=== PATIENT | male | born 1960 | race Caucasian/White ===

== ENCOUNTER 2024-11-11 23:13 | Emergency (ER) | payer SELFPAY ==
--- NOTE | 2024-11-11 23:40 | ER ---
Nurse's Notes [facility] Name: Remington Goetz Age: 63 yrs Sex: Male : 1960 Arrival Date: 11/11/2024 Time: 23:13 Bed 10 Private MD: Diagnosis: Pain in left hand Presentation: 11/11 23:23 Chief complaint: Patient states: LT HAND PAIN X3 WEEKS. PT REPORTS COMING TO THIS ER, dd2 GETTING SHOT AND STEROID, FOLLOWED UP WITH PCP AND WAS GIVEN MORE STEROIDS BUT CONTINUES TO HAVE WORSE PAIN. Coronavirus screen: At this time, the client does not indicate any symptoms associated with coronavirus-19. Ebola Screen: No symptoms or risks identified at this time. Initial Sepsis Screen: Does the patient meet any 2 criteria? No. Patient's initial sepsis screen is negative. Does the patient have a suspected source of infection? No. Patient's initial sepsis screen is negative. Risk Assessment: Do you want to hurt yourself or someone else? Patient reports no desire to harm self or others. Onset of symptoms is unknown. 23:23 Method Of Arrival: Ambulatory dd2 23:23 Acuity: JOE 4 dd2 Triage Assessment: 23:25 General: Appears in no apparent distress. uncomfortable, Behavior is calm, cooperative, dd2 appropriate for age. Pain: Complains of pain in left hand. Musculoskeletal: Circulation, motion, and sensation intact. Range of motion: intact in all extremities, Tenderness present in left hand Reports pain in left hand. Historical: - Allergies: 23:25 Sulfa (Sulfonamide Antibiotics); dd2 - PMHx: 23:25 None; dd2 - PSHx: 23:25 Partial shoulder-L; dd2 - Immunization history:: Adult Immunizations up to date. - Infectious Disease History:: Denies. - Social history:: Smoking status: Patient denies any tobacco usage or history of. Screenin:50 [facility] ED Fall Risk Assessment (Adult) History of falling in the last 3 months, dd2 including since admission No falls in past 3 months (0 pts) Confusion or Disorientation No (0 pts) Intoxicated or Sedated No (0 pts) Impaired Gait No (0 pts) Mobility Assist Device Used No (0 pt) Altered Elimination No (0 pt) Score/Fall Risk Level 0 - 2 = Low Risk Oriented to surroundings, Maintained a safe environment, Educated pt \T\ family on fall prevention, incl call for assistance when getting out of bed, Hourly rounding (assess needs \T\ fall precautionary measures) done. Abuse screen: Denies threats or abuse. Denies injuries from another. Nutritional screening: No deficits noted. Tuberculosis screening: No symptoms or risk factors identified. Assessment: 23:50 Reassessment: SEE TRIAGE ASSESSMENT. dd2 Vital Signs: 23:23 BP 158 / 92; Pulse 82; Resp 18; Temp 98.1; Pulse Ox 97% on R/A; Pain 10/10; dd2 23:23 Pain Scale: Adult dd2 ED Course: 23:20 Patient arrived in ED. im 23:20 Kandace Balderas FNP-C is [facility]. kb 23:20 Julien Brown MD is Attending Physician. kb 23:25 Triage completed. dd2 23:25 Arm band placed on right wrist. dd2 23:50 Patient has correct armband on for positive identification. Provided Education on: D/C dd2 EDUCATION. 23:50 No provider procedures requiring assistance completed. Patient did not have IV access dd2 during this emergency room visit. Administered Medications: 23:50 Drug: Paola PO 10 mg-325 mg 1 tabs PO once Route: PO; dd2 23:50 Drug: Ketorolac IM 30 mg IM once Route: IM; Site: left ventrogluteal; dd2 23:50 Drug: Dexamethasone IM 10 mg IM once Route: IM; Site: left ventrogluteal; dd2 Medication: 23:50 VIS not applicable for this client. dd2 Outcome: 23:40 Discharge ordered by . kb 23:50 Discharged to home ambulatory, dd2 23:50 Condition: stable 23:50 Discharge instructions given to patient, Instructed on discharge instructions, follow up and referral plans. medication usage, Demonstrated understanding of instructions, follow-up care, medications, Prescriptions given X 2, 23:52 Patient left the ED. dd2 Signatures: Kandace Balderas FNP-C FNP-Malena Toro im RIMMA CAVANAUGH RN RN dd2
--- NOTE | 2024-11-11 23:40 | EDPHYS ---
Physician Documentation [facility] Name: Remington Goetz Age: 63 yrs Sex: Male : 1960 Arrival Date: 11/11/2024 Time: 23:13 Bed 10 Private MD: ED Physician Julien Brown HPI: 11/11 23:36 This 63 yrs old Male presents to ER via Ambulatory with complaints of Hand Pain. kb 23:36 Pt is a 63 year old male who presents for pain to heel of hand that started 3 weeks kb ago. Pt was seen here around onset of pain, had negative US and xray. Was seen by PCP and given a steroid pack which made the pain tolerable until he completed the pack and the pain returned. Denies fever. . Historical: - Allergies: 23:25 Sulfa (Sulfonamide Antibiotics); dd2 - PMHx: 23:25 None; dd2 - PSHx: 23:25 Partial shoulder-L; dd2 - Immunization history:: Adult Immunizations up to date. - Infectious Disease History:: Denies. - Social history:: Smoking status: Patient denies any tobacco usage or history of. ROS: 23:35 Constitutional: As per HPI kb Exam: 23:35 Constitutional: This is a well developed, well nourished patient who is awake, alert, kb and in no acute distress. Head/Face: Normocephalic, atraumatic. ENT: Moist Mucous membranes Respiratory: Respirations even and unlabored. No increased work of breathing. Talking in full sentences Skin: Warm, dry with normal turgor. Normal color. Neuro: Awake and alert, GCS 15, oriented to person, place, time, and situation. 23:35 Musculoskeletal/extremity: Extremities: grossly normal except: noted in the left wrist and left hand: decreased ROM, pain, swelling, tenderness, ROM: limited active range of motion due to pain, Circulation is intact in all extremities. Sensation intact. Vital Signs: 23:23 BP 158 / 92; Pulse 82; Resp 18; Temp 98.1; Pulse Ox 97% on R/A; Pain 10/10; dd2 23:23 Pain Scale: Adult dd2 MDM: 23:20 Medical Screening Exam initiated kb 23:36 Differential diagnosis: tendonitis, arthritis, carpal tunnel. Data reviewed: vital kb signs, nurses notes. Test considered but Not performed: X-ray: xray considered but pt has had no injury and had a recent negative xray. Counseling: I had a detailed discussion with the patient and/or guardian regarding the historical points, exam findings, and any diagnostic results supporting the discharge/admit diagnosis, the need for outpatient follow up, a orthopedic surgeon, to return to the emergency department if symptoms worsen or persist or if there are any questions or concerns that arise at home. ED course: Pt will call PCP tomorrow for follow up and to get a referral to ortho. Administered Medications: 23:50 Drug: [place] PO 10 mg-325 mg 1 tabs PO once Route: PO; dd2 23:50 Drug: Ketorolac IM 30 mg IM once Route: IM; Site: left ventrogluteal; dd2 23:50 Drug: Dexamethasone IM 10 mg IM once Route: IM; Site: left ventrogluteal; dd2 Disposition: 11/12 18:52 Co-signature as Attending Physician, Julien Brown MD I agree with the assessment sp4 and plan of care. I reviewed the patient's care provided by the Advanced Practice Provider and agree with the diagnosis and treatment plan. Disposition Summary: 11/11/24 23:40 Discharge Ordered Notes: Location: Home kb Condition: Stable kb Diagnosis - Pain in left hand kb Followup: kb - With: Emergency Department - When: As needed - Reason: Worsening of condition Followup: kb - With: Private Physician - When: 2 - 3 days - Reason: Recheck today's complaints, Continuance of care, Re-evaluation by your physician Discharge Instructions: - Discharge Summary Sheet kb - Musculoskeletal Pain kb Forms: - Medication Reconciliation Form kb - Antibiotic Education kb - Prescription Opioid Use kb - Patient Portal Instructions kb - Leadership Thank You Letter kb Prescriptions: - Cyclobenzaprine 10 mg Oral tablet - take 1 tablet ORAL route every 8 hours As needed; 21 tablet; Refills: 0, kb Product Selection Permitted - Diclofenac Sodium 75 mg Oral tablet, delayed release (enteric coated) - take 1 tablet ORAL route 2 times per day As needed; 30 tablet; Refills: 0, kb Product Selection Permitted Signatures: Kandace Balderas FNP-C FNP-Ckb Potepalov, Sergey, MD MD sp4 RIMMA CAVANAUGH RN RN dd2
[2024-11-11] MEDS ORDERED: KETOROLAC 30 MG/ML INJ ONE (23:44)
[2024-11-11] MEDS ORDERED: HYDROCODONE/APAP 10/325 TAB ONE (23:44)
[2024-11-12 04:14] VITALS: BP 158/92; TEMP 98.1; O2SAT 97
== END 2024-11-11 23:52 | disposition home or self-care (01) ==
LOC: ER 23:13
DX: M79.642 Pain in left hand (principal)
CPT/HCPCS: J1100

== ENCOUNTER 2024-11-13 15:21 | Emergency (ER) | payer SELFPAY ==
--- NOTE | 2024-11-13 17:16 | RAD REPORT ---
EXAM: Hand Left 3 View HISTORY: PAIN COMPARISON: None FINDINGS: Bones: No acute fracture identified. Alignment:No significant malalignment. Degenerative changes:None significant. Other: n/a IMPRESSION: No acute osseous abnormality involving the imaged hand.
[2024-11-13] MEDS ORDERED: GABAPENTIN 300 MG CAP ONE (18:01)
[2024-11-13] MEDS ORDERED: KETOROLAC 30 MG/ML INJ ONE (18:01)
[2024-11-13] MEDS ORDERED: HYDROCODONE/APAP 10/325 TAB ONE (18:02)
--- NOTE | 2024-11-13 18:39 | EDPHYS ---
Physician Documentation [facility] Name: Remington Goetz Age: 63 yrs Sex: Male : 1960 Arrival Date: 11/13/2024 Time: 15:21 Bed 17 Private MD: ED Physician Adrien Etienne HPI: 11/13 16:20 This 63 yrs old Male presents to ER via Ambulatory with complaints of Hand Pain. cp 16:20 The patient or guardian reports pain, tenderness. The complaints affect the dorsal side cp of left thumb. Context: resulted from an unknown cause. Onset: The symptoms/episode began/occurred 4 day(s) ago. Modifying factors: the symptoms are aggravated by movement. 16:20 Associated signs and symptoms: Pertinent negatives: numbness distally, injury. cp 16:20 Severity of symptoms: in the emergency department the symptoms are unchanged, despite cp home interventions. Historical: - Allergies: 16:10 Sulfa (Sulfonamide Antibiotics); me1 - Home Meds: 16:10 naloxone (bulk) [Active]; buprenorphine-naloxone sublingual [Active]; me1 - PMHx: 16:10 neuropathy (Unknown); me1 - PSHx: 16:10 Partial shoulder-L; me1 - Immunization history:: Adult Immunizations up to date. - Infectious Disease History:: Denies. - Social history:: Smoking status: Reported history of juuling and/or vaping. ROS: 16:25 Constitutional: Negative for body aches, chills, fever, poor PO intake, cp 16:25 Cardiovascular: Negative for chest pain, palpitations, cp 16:25 Respiratory: Negative for cough, shortness of breath, wheezing, 16:25 Abdomen/GI: Negative for abdominal pain, vomiting, diarrhea, constipation, 16:25 Back: Negative for pain at rest, pain with movement, 16:25 MS/extremity: Positive for pain, of the left hand, Negative for injury or acute deformity, decreased range of motion, paresthesias, swelling, 16:25 All other systems are negative, Exam: 16:30 Constitutional: The patient appears in no acute distress, alert, awake, cp non-diaphoretic, non-toxic, well developed, well nourished, obese, uncomfortable, 16:30 Head/Face: Normocephalic, atraumatic. cp 16:30 Chest/axilla: Inspection: normal, 16:30 Cardiovascular: Rate: normal, Rhythm: regular, Pulses: Pulses are 2+ in left radial artery. 16:30 Respiratory: the patient does not display signs of respiratory distress, Respirations: normal, no use of accessory muscles, no retractions, labored breathing, is not present, Breath sounds: are clear throughout, no decreased breath sounds, 16:30 Abdomen/GI: Inspection: abdomen appears normal, 16:30 Musculoskeletal/extremity: Extremities: noted in the left hand: Gross exam shows no significant swelling, no erythema noted, patient has full active range of motion but reports pain and tenderness along the dorsal side of the proximal phalanx and first metatarsal with extension to the snuffbox area of the wrist, pain with passive range of motion of the left thumb but no deformities or range of motion restriction noted. Left thumb is neurovascular intact, Vital Signs: 16:07 BP 162 / 99; Pulse 84; Resp 17; Temp 97.9; Pulse Ox 99% ; Weight 140.61 kg; Height 5 me1 ft. 11 in. ; Pain 10/10; 17:54 BP 165 / 76; Pulse 68; Resp 20; Pulse Ox 96% on R/A; ar8 19:29 BP 141 / 81; Pulse 56; Resp 17; Pulse Ox 97% on R/A; Pain 7/10; tb4 16:07 Body Mass Index 43.24 (140.61 kg, 180.34 cm) me1 16:07 Pain Scale: Adult me1 19:29 Pain Scale: Adult tb4 MDM: 16:09 Medical Screening Exam initiated lakshmi 17:00 Differential diagnosis: tendonitis, fracture, neuropathy. cp 18:38 Data reviewed: vital signs, nurses notes, radiologic studies, plain films, and as a cp result, I will discharge patient. 18:38 I considered the following discharge prescriptions or medication management in the emergency department Medications were administered in the Emergency Department. See MAR. Independent interpretation of the following test(s) in the Emergency Department X-Ray: My interpretation is images of left hand negative for fracture. Counseling: I had a detailed discussion with the patient and/or guardian regarding the historical points, exam findings, and any diagnostic results supporting the discharge/admit diagnosis, radiology results, the need for outpatient follow up, for definitive care, a hand specialist. Response to treatment: the patient's symptoms have mildly improved after treatment, and as a result, I will discharge patient. 11/13 16:16 Order name: XRAY Hand LEFT 3 View; Complete Time: 17:32 cp 11/13 17:32 Interpretation: Report reviewed. cp 11/13 16:16 Order name: Splint - Thumb Spica: left; Complete Time: 19:10 cp Administered Medications: 18:12 Drug: HYDROcodone-acetaminophen PO 10 mg-325 mg 1 tabs PO once Route: PO; ar8 19:44 Follow up: Response: No adverse reaction; Pain is decreased; RASS: Alert and Calm (0) tb4 18:12 Drug: Neurontin PO 300 mg PO once Route: PO; ar8 19:44 Follow up: Response: No adverse reaction; Pain is decreased; RASS: Alert and Calm (0) tb4 18:16 Drug: Ketorolac IM 30 mg IM once Route: IM; Site: left ventrogluteal; ar8 19:50 Follow up: Response: No adverse reaction; Pain is decreased tb4 18:19 Drug: Dexamethasone IM 10 mg IM once Route: IM; Site: right ventrogluteal; ar8 19:44 Follow up: Response: No adverse reaction; Pain is decreased tb4 Disposition: 11/14 09:12 Co-signature as Attending Physician, Adrien Etienne MD I agree with the assessment and lakshmi plan of care. 16:06 Chart complete. cp Disposition Summary: 11/13/24 18:38 Discharge Ordered Notes: Location: Home cp Problem: an ongoing problem cp Symptoms: have improved cp Condition: Stable cp Diagnosis - Other synovitis and tenosynovitis, left hand - left thumb cp Followup: cp - With: Private Physician - When: 5 - 6 days - Reason: Recheck today's complaints, DR Be Soliz Discharge Instructions: - Discharge Summary Sheet cp - De Quervain's Tenosynovitis cp Forms: - Medication Reconciliation Form cp - Antibiotic Education cp - Prescription Opioid Use cp - Patient Portal Instructions cp - Leadership Thank You Letter cp Prescriptions: - Neurontin 300 mg Oral Capsule - take 1 capsule ORAL route every 8 hours; 30 capsule; Refills: 0, Product cp Selection Permitted - Diclofenac Sodium 75 mg Oral Tablet Sustained Release - take 1 tablet ORAL route 2 times per day; 30 tablet; Refills: 0, Product cp Selection Permitted - Medrol (Greg) 4 mg Oral Tablets, Dose Pack - take 1 tablet ORAL route as directed - follow package instructions; 1 packet; cp Refills: 0, Product Selection Permitted Signatures: Dispatcher [employer] Adrien Palencia MD MD cha Page, Corey, PA-C PA-C Dorita Lawson RN RN me1 Evert Avery RN RN ar8 German, Katharine RN tb4
--- NOTE | 2024-11-13 18:39 | ER ---
Nurse's Notes [facility] Name: Remington Goetz Age: 63 yrs Sex: Male : 1960 Arrival Date: 11/13/2024 Time: 15:21 Bed 17 Private MD: Diagnosis: Other synovitis and tenosynovitis, left hand-left thumb Presentation: 11/13 16:07 Chief complaint: Patient states: c/o pain to left thumb and wrist. Was seen here a me1 couple of weeks ago, treated and pain resolved. Saw pcp for f/u visit and was feeling ok. 4 days ago pain gradually started again and today is 10/10 "sharp" "shooting" "burning". Coronavirus screen: At this time, the client does not indicate any symptoms associated with coronavirus-19. Ebola Screen: No symptoms or risks identified at this time. Initial Sepsis Screen: Does the patient meet any 2 criteria? No. Patient's initial sepsis screen is negative. Does the patient have a suspected source of infection? No. Patient's initial sepsis screen is negative. Risk Assessment: Do you want to hurt yourself or someone else? Patient reports no desire to harm self or others. Onset of symptoms was November 09, 2024. 16:07 Method Of Arrival: Ambulatory nv1 16:07 Acuity: JOE 4 me1 Historical: - Allergies: 16:10 Sulfa (Sulfonamide Antibiotics); me1 - Home Meds: 16:10 naloxone (bulk) [Active]; buprenorphine-naloxone sublingual [Active]; me1 - PMHx: 16:10 neuropathy (Unknown); me1 - PSHx: 16:10 Partial shoulder-L; me1 - Immunization history:: Adult Immunizations up to date. - Infectious Disease History:: Denies. - Social history:: Smoking status: Reported history of juuling and/or vaping. Screenin:54 [facility] ED Fall Risk Assessment (Adult) History of falling in the last 3 months, ar8 including since admission No falls in past 3 months (0 pts) Confusion or Disorientation No (0 pts) Intoxicated or Sedated No (0 pts) Impaired Gait No (0 pts) Mobility Assist Device Used No (0 pt) Altered Elimination No (0 pt) Score/Fall Risk Level 0 - 2 = Low Risk. Abuse screen: Denies threats or abuse. Nutritional screening: No deficits noted. Tuberculosis screening: No symptoms or risk factors identified. Assessment: 17:54 General: Appears uncomfortable, Behavior is calm, cooperative. Pain: Complains of pain ar8 in lateral aspect of left hand and palmar aspect of proximal phalanx of left thumb. Neuro: Level of Consciousness is awake, alert, obeys commands, Oriented to person, place, time, situation. Cardiovascular: No deficits noted. Respiratory: Airway is patent Respiratory effort is even, unlabored, Respiratory pattern is regular, symmetrical. Musculoskeletal: Reports pain in lateral aspect of left hand and palmar aspect of proximal phalanx of left thumb. 19:40 General: Appears comfortable, Behavior is calm, cooperative, at bedside. Pain: tb4 Complains of pain in lateral aspect of left hand, palmar aspect of distal phalanx of left thumb, palmar aspect of proximal phalanx of left thumb, heel of left hand and Left first web space Pain does not radiate. Pain currently is 7 out of 10 on a pain scale. Quality of pain is described as pressure, throbbing, Pain began suddenly, Is continuous, Alleviated by medications, Aggravated by increased activity, repositioning, weight bearing. Neuro: Level of Consciousness is awake, alert, obeys commands, Oriented to person, place, time, situation, Clinical Abstractor are weak on left Moves all extremities. Full function Weakness in left hand(s). Respiratory: Airway is patent Trachea midline Respiratory effort is even, unlabored, Respiratory pattern is regular, symmetrical. GI: No signs and/or symptoms were reported involving the gastrointestinal system. : No signs and/or symptoms were reported regarding the genitourinary system. Musculoskeletal: Circulation, motion, and sensation intact. Capillary refill < 3 seconds, is brisk, in bilateral fingers. 19:40 Reassessment: Patient is alert, oriented x 3, equal unlabored respirations, skin tb4 warm/dry/pink. Patient states feeling better. Patient states symptoms have improved. Pain 10 from 01/02. Vital Signs: 16:07 BP 162 / 99; Pulse 84; Resp 17; Temp 97.9; Pulse Ox 99% ; Weight 140.61 kg; Height 5 me1 ft. 11 in. ; Pain 10/10; 17:54 BP 165 / 76; Pulse 68; Resp 20; Pulse Ox 96% on R/A; ar8 19:29 BP 141 / 81; Pulse 56; Resp 17; Pulse Ox 97% on R/A; Pain 7/10; tb4 16:07 Body Mass Index 43.24 (140.61 kg, 180.34 cm) me1 16:07 Pain Scale: Adult me1 19:29 Pain Scale: Adult tb4 ED Course: 15:23 Patient arrived in ED. mr 15:25 Adrien Lyons PA-C is PHCP. cp 15:25 Adrien Etienne MD is Attending Physician. cp 16:10 Triage completed. me1 16:10 Arm band placed on Patient placed in waiting room. me1 17:07 XRAY Hand LEFT 3 View In Process Unspecified. EDMS 17:50 Evert Avery, SALVADOR is Primary Nurse. ar8 17:54 Bed in low position. Call light in reach. Side rails up X 1. Provided Education on: ar8 plan of care. 17:54 No provider procedures requiring assistance completed. ar8 18:45 Orthoglass splint: Thumb spica splint applied on left forearm. ar8 19:40 Patient did not have IV access during this emergency room visit. tb4 19:46 Client placed on continuous cardiac and pulse oximetry monitoring. NIBP monitoring tb4 applied. Pulse ox on. Door closed. 19:46 X-ray(s) taken. tb4 Administered Medications: 18:12 Drug: HYDROcodone-acetaminophen PO 10 mg-325 mg 1 tabs PO once Route: PO; ar8 19:44 Follow up: Response: No adverse reaction; Pain is decreased; RASS: Alert and Calm (0) tb4 18:12 Drug: Neurontin PO 300 mg PO once Route: PO; ar8 19:44 Follow up: Response: No adverse reaction; Pain is decreased; RASS: Alert and Calm (0) tb4 18:16 Drug: Ketorolac IM 30 mg IM once Route: IM; Site: left ventrogluteal; ar8 19:50 Follow up: Response: No adverse reaction; Pain is decreased tb4 18:19 Drug: Dexamethasone IM 10 mg IM once Route: IM; Site: right ventrogluteal; ar8 19:44 Follow up: Response: No adverse reaction; Pain is decreased tb4 Medication: 17:54 VIS not applicable for this client. ar8 Outcome: 18:38 Discharge ordered by MD. cp 19:48 Discharged to home ambulatory, tb4 19:48 Condition: stable 19:48 Discharge instructions given to patient, family, Instructed on discharge instructions, follow up and referral plans. no drinking with medication, medication usage, splint care Demonstrated understanding of instructions, follow-up care, medications, splint care, Prescriptions given X 3, 19:50 Patient left the ED. tb4 Signatures: Dispatcher [employer] EDKY Tena Hammer, Reg Reg mr Serena Adrien, PA-C PA-C Dorita Lawson, RN RN me1 Katharine Porter RN RN tb4 Evert Avery RN RN ar8 Corrections: (The following items were deleted from the chart) 18:19 18:18 Dexamethasone IM 10 mg IM in left ventrogluteal ar8 ar8
[2024-11-13 20:48] VITALS: TEMP 97.9
[2024-11-13 20:51] VITALS: BP 141/81; O2SAT 97
== END 2024-11-13 19:50 | disposition home or self-care (01) ==
LOC: ER 15:21
DX: M65.842 Other synovitis and tenosynovitis, left hand (principal); F17.290 Nicotine dependence, other tobacco product, uncomplicated; Z88.2 Allergy status to sulfonamides
CPT/HCPCS: 96372; 99284; J1100